=== PATIENT | female | born 1960 | race African-American/Black ===

== ENCOUNTER 2017-12-20 02:55 | Inpatient (IN) | payer OTHER ==
[~2017-12-20] VITALS: Ht 170.2 cm; Wt 84.1 kg
[~2017-12-20 02:55] MED LIST: GABA800T PO; MISO200T PO; SPIR100T PO; TOPI25 PO; [UNRECOGNIZED DRUG - CODE] PO
[2017-12-20] MEDS ORDERED: BACL10TA PO (03:12)
[2017-12-20] MEDS ORDERED: CALC-910 PO (03:12)
[2017-12-20] MEDS ORDERED: MAGN100C4 PO (03:12)
[2017-12-20] MEDS ORDERED: ZINC50TA38 PO (03:12)
[2017-12-20 03:51] LABS: BASOPHILS % (AUTO) 0.9 % (0.0-2.0); HEMATOCRIT 37.9 % (36-46); HEMOGLOBIN 12.5 g/dL (12.0-16.0); LYMPHOCYTES # (AUTO) 2.3 K/uL (1.0-4.8); LYMPHOCYTES % (AUTO) 37.5 % (22.0-44.0); MEAN CORPUSCULAR HEMOGLOBIN 24.1 pg (26.0-34.0); MEAN CORPUSCULAR HGB CONC 32.8 G/dL (31.0-37.0); MEAN CORPUSCULAR VOLUME 74 fL (80-100); MONOCYTES # (AUTO) 0.4 K/uL (0.1-1.0); NEUTROPHILS # (AUTO) 3.3 K/uL (1.8-7.7); NEUTROPHILS % (AUTO) 53.6 % (40.0-70.0); PLATELET COUNT (AUTO) 283 K/uL (150-450); RED BLOOD CELL COUNT(AUTO) 5.16 MIL/uL (4.00-5.20); RED CELL DISTRIBUTION WIDTH 15.5 % (11.5-14.5)
[2017-12-20 04:03] LABS: ANION GAP 9 mmol/L (8-16); CALCIUM, TOTAL 9.4 mg/dL (8.8-10.5); CARBON DIOXIDE 28 mmol/L (22-29); CHLORIDE 104 mmol/L (98-107); CREATININE 1.08 mg/dL (0.60-1.30); GLOMERULAR FILTR. RATE CALC > 60 mL/min (>60); GLUCOSE,RANDOM 98 mg/dL (70-110); POTASSIUM 3.2 mmol/L (3.5-5.1); SODIUM SERUM 141 mmol/L (136-145); UREA NITROGEN, BLOOD 8 mg/dL (7-18)
[2017-12-20 04:09] LABS: ALANINE AMINOTRANSFERASE 34 U/L (12-78); ALBUMIN 3.8 g/dL (3.4-5.0); ALKALINE PHOSPHATASE 66 U/L (46-116); ASPARTATE AMINOTRANSFERASE 19 U/L (15-37); BILIRUBIN,TOTAL 0.2 mg/dL (0.1-1.0); TOTAL PROTEIN, SERUM 7.9 g/dL (6.4-8.2)
[2017-12-20] MEDS ORDERED: ONDANSETRON HCL 4 MG/2 ML VIAL IVP PRN (05:15)
[2017-12-20] MEDS ORDERED: 0.9% SODIUM CHLORIDE 10 ML SYRINGE IVP PRN (05:15)
[2017-12-20] MEDS ORDERED: ACETAMINOPHEN 325 MG TABLET PO PRN ×2 (05:15→09:45)
[2017-12-20] MEDS ORDERED: POTASSIUM CHLORIDE 20 MEQ ER TABLET PO ONE (05:30)
[2017-12-20 05:51] VITALS: BP 100/59
[2017-12-20 07:46] VITALS: BP 104/62
[2017-12-20] MEDS ORDERED: PANTOPRAZOLE SODIUM 40 MG DR TABLET PO SCH (09:45)
[2017-12-20] MEDS ORDERED: MAGNESIUM HYDROXIDE SUSPENSION 30 ML UDCUP PO PRN (09:45)
[2017-12-20] MEDS ORDERED: POTASSIUM CHL 10 MEQ/WATER 50 ML IV PRN (10:00)
[2017-12-20] MEDS ORDERED: POTASSIUM CHLORIDE 20 MEQ ER TABLET PO PRN (10:00)
[2017-12-20] MEDS ORDERED: ASPIRIN 81 MG CHEWABLE TABLET PO SCH (10:00)
[2017-12-20] MEDS: OxyCODONE HCL/ACETAMINOPHEN 5-325 MG TABLET PO PRN ×2 (10:51→15:52)
[2017-12-20 11:19] VITALS: BP_SYST 106; BP_SYST 93; BP_DIAS 54; BP_DIAS 66
[2017-12-20 16:10] VITALS: BP 100/58
[2017-12-20] MEDS ORDERED: DOCUSATE SODIUM 100 MG CAPSULE PO SCH (21:00)
[2017-12-20] MEDS ORDERED: GABAPENTIN 400 MG CAPSULE PO SCH (21:00)
[2017-12-20] MEDS ORDERED: BACLOFEN 10 MG TABLET PO SCH (21:00)
[2017-12-20] MEDS ORDERED: TOPIRAMATE 25 MG TABLET PO SCH (21:00)
== END 2017-12-20 18:35 | disposition home or self-care (01) | DRG 203 ==
LOC: EMS 02:56 → 5N 05:02
PROVIDERS: ADMIT Internal Medicine; ATTEND Internal Medicine
DX: R07.89 Other chest pain (principal); E87.6 Hypokalemia; M79.7 Fibromyalgia; F45.41 Pain disorder exclusively related to psychological factors; Z98.51 Tubal ligation status; Z79.899 Other long term (current) drug therapy; Z82.49 Family history of ischemic heart disease and other diseases of the circulatory system
CPT/HCPCS: 84132; 85379; 93005; 93306; 99285